=== PATIENT | female | born 1950 | race Caucasian/White ===

== ENCOUNTER → 2018-03-11 08:30 | Outpatient (CLI) | payer OTHER, SELFPAY ==
[2018-03-11 09:35] LABS: Add Manual Diff / Slide Review NO; Basophils Percent Auto 0.7 % (0-2); Eosinophils Percent Auto 3.9 % (2-4); Hematocrit 40.9 % (36-46); Hemoglobin 13.8 g/dL (12.0-16.0); Lymphocytes Percent Auto 20.2 % (25-40); Mean Corpuscular HGB Conc 33.7 % (30-36); Mean Corpuscular Hemoglobin 29.5 PG (26-34); Mean Corpuscular Volume 87.5 fL (80-100); Monocytes Percent Auto 10.2 % (3-14); Neutrophils Absolute Auto 5100 /uL (3000-5900); Platelet Count 380 X10^3/uL (150-400); Red Blood Cell Count 4.67 X10^6/uL (4.0-5.2); Red Cell Distribution Width 14.5 % (11.6-14.8); White Blood Cell Count 7.8 X10^3/uL (4.5-11.0)
[2018-03-11 09:59] LABS: Alanine Aminotransferase 37 IU/L (9-52); Albumin 4.1 g/dL (3.5-5.0); Albumin Globulin Ratio 1.1 (1.0-2.8); Alkaline Phosphatase 114 U/L (38-126); Aspartate Aminotransferase 29 IU/L (14-36); BUN Creatinine Ratio 18.8 (6-22); Bilirubin Total 0.5 mg/dL (0.2-1.3); Blood Urea Nitrogen 15 mg/dL (7-17); Calcium 10.1 mg/dL (8.4-10.2); Carbon Dioxide 25 mmol/L (22-32); Chloride 104 mmol/L (98-107); Cholesterol 185 mg/dL (140-199); Estimated Glomerular Filt Rate > 60.0 mL/min (>60); Globulin 3.8 g/dL (1.7-4.1); Glucose 111 mg/dL (80-110); HDL Cholesterol 73 mg/dL (40-60); HEMOLYSIS < 15 (0-50); LDL Cholesterol Calculated 92 mg/dL (<100); Potassium 4.4 mmol/L (3.4-5.1); Sodium 140 mmol/L (137-145); Total Protein 7.9 g/dL (6.3-8.2); Triglycerides 102 mg/dL (35-150)
== END ==
PROVIDERS: Family Provider Family Medicine; PCP Family Medicine; Visit Provider Family Medicine
DX: E78.5 Hyperlipidemia, unspecified (principal)
CPT/HCPCS: 36415; 80053; 80061; 85025

== ENCOUNTER → 2019-02-21 16:52 | Outpatient (CLI) | payer OTHER, SELFPAY ==
--- NOTE | 2019-02-21 16:54 | DI.MG.S_ITS ---
BILATERAL DIGITAL SCREENING MAMMOGRAM 3D/2D WITH CAD: 02/21/2019 CLINICAL: Routine screening. Family history of breast cancer. Comparison is made to exams dated: 12/29/2017 mammogram, 07/01/2017 mammogram, and 06/17/2017 mammogram - [facility]. The tissue of both breasts is predominantly fatty. Current study was also evaluated with a Computer Aided Detection (CAD) system. There is a 1.1 cm irregular focal asymmetry with a spiculated margin in the left breast at 3 o'clock anterior depth. This is increased in size. No other significant masses, calcifications, or other findings are seen in either breast. IMPRESSION: INCOMPLETE: NEEDS ADDITIONAL IMAGING EVALUATION The 1.1 cm irregular focal asymmetry in the left breast is indeterminate. A diagnostic mammogram and ultrasound is recommended. This exam was interpreted at Station ID: [id number]. NOTE: For mammograms, a report in lay terms will be sent to the patient. Approximately 15% of breast malignancies will not be visualized mammographically. In the management of a palpable breast mass, a negative mammogram must not discourage biopsy of a clinically suspicious lesion. Electronically Signed By: Tracee lange/:02/21/2019 18:55:23 letter sent: Additional Imaging Needed ACR BI-RADS Category 0: Incomplete 3340F
== END ==
PROVIDERS: Family Provider Student in an Organized Health Care Education/Training Program; PCP Student in an Organized Health Care Education/Training Program; Visit Provider Student in an Organized Health Care Education/Training Program
DX: Z12.31 Encounter for screening mammogram for malignant neoplasm of breast (principal); Z80.3 Family history of malignant neoplasm of breast
CPT/HCPCS: 77063; 77067

== ENCOUNTER → 2019-03-08 14:11 | Outpatient (CLI) | payer OTHER, SELFPAY ==
--- NOTE | 2019-03-08 14:13 | DI.US.S_ITS ---
LIMITED ULTRASOUND OF LEFT BREAST AND AXILLA: 03/08/2019 CLINICAL: Patient returns today to evaluate a focal asymmetry in the left breast. Comparison is made to exams dated: 03/08/2019 mammogram, 02/21/2019 mammogram, 06/17/2017 mammogram - [facility], and 02/22/2014 mammogram [facility]. Real-time and Doppler ultrasound of the left breast 3-4 o'clock, and axilla regions were performed. Staples scale images of the real-time examination were reviewed. There is a 0.9 x 0.6 x 1.4 cm oval indistinct hyperechoic mass with mixed central hypoechogenicity located in the left breast at 3:30 position 2 cm from the nipple. This mass demonstrates posterior shadowing artifact and no significant vascularity on Doppler ultrasound. This appears to correlate with the findings seen on comparison mammography. Targeted ultrasound of the left axilla demonstrates 2 axillary lymph nodes measuring 1.0 x 1.2 x 1.0 cm and 1.6 x 1.1 x 1.4 cm respectively, which both demonstrate similar morphology to the mass described above (being oval indistinct hyperechoic masses with mixed central hypoechogenicity). These lymph nodes demonstrate mild internal vascularity on Doppler ultrasound. IMPRESSION: SUSPICIOUS OF MALIGNANCY There is a 1.4 cm hyperechoic mass in the left breast at 3:30 position 2 cm from the nipple. This may represent an atypical intramammary lymph node given similar morphology to atypical lymph nodes seen within the left axilla, versus focal fat edema/injury (patient denies any recent history of trauma). An ultrasound-guided biopsy of the 1.4 cm mass in the left breast at 3:30 position 2 cm from the nipple is recommended to exclude underlying malignancy. Biopsy versus followup of the left axillary nodes is deferred at this time pending mass biopsy results. These results and recommendations were discussed with the patient at the time of the exam by Dr. Brown in person. The patient was advised to monitor her breasts and to return sooner for re-evaluation should she feel anything grow or change. This exam was interpreted at Station ID: [id number]. Electronically Signed By: Jorge Brown M.D. ecl/:03/08/2019 15:46:39 letter sent: Biopsy Required Ultrasound BI-RADS: 4a Suspicious abnormality - low suspicion for malignancy
--- NOTE | 2019-03-08 14:13 | DI.MG.S_ITS ---
UNILATERAL LEFT DIGITAL DIAGNOSTIC MAMMOGRAM 3D/2D: 03/08/2019 CLINICAL: Additional evaluation requested from prior study. Comparison is made to exams dated: 02/21/2019 mammogram, 12/29/2017 mammogram, 07/01/2017 mammogram, and 06/17/2017 mammogram - [facility]. The tissue of left breast is predominantly fatty. Previously identified approximately 1.1 cm irregular focal asymmetry with a spiculated margin in the left breast at 3 o'clock anterior depth on comparison screening mammograms of 02/21/2019 persists with additional views. IMPRESSION: INCOMPLETE: NEEDS ADDITIONAL IMAGING EVALUATION Previously identified approximately 1.1 cm irregular focal asymmetry with a spiculated margin in the left breast at 3 o'clock anterior depth on comparison screening mammograms of 02/21/2019 persists with additional views. A targeted ultrasound is recommended for further evaluation, and will be performed immediately following this exam. This exam was interpreted at Station ID: [id number]. NOTE: For mammograms, a report in lay terms will be sent to the patient. Approximately 15% of breast malignancies will not be visualized mammographically. In the management of a palpable breast mass, a negative mammogram must not discourage biopsy of a clinically suspicious lesion. Electronically Signed By: Jorge Brown M.D. ecl/:03/08/2019 15:38:03 ACR BI-RADS Category 0: Incomplete 3340F
== END ==
PROVIDERS: Family Provider Student in an Organized Health Care Education/Training Program; PCP Student in an Organized Health Care Education/Training Program; Visit Provider Student in an Organized Health Care Education/Training Program
DX: R92.8 Other abnormal and inconclusive findings on diagnostic imaging of breast (principal); N63.23 Unspecified lump in the left breast, lower outer quadrant
CPT/HCPCS: 76642; 77065; G0279

== ENCOUNTER → 2019-03-28 13:45 | Outpatient (CLI) | payer OTHER, SELFPAY ==
--- NOTE | 2019-03-28 | DI.MG.S_ITS ---
UNILATERAL LEFT DIGITAL DIAGNOSTIC MAMMOGRAM POST-NEEDLE BIOPSY: 03/28/2019 CLINICAL: Left breast mass. Comparison is made to exams dated: 03/08/2019 mammogram, 02/21/2019 mammogram, and 06/17/2017 mammogram - [facility]. Current study contains 2 films. The tissue of left breast is predominantly fatty. There is a marker clip in the appropriate position in the left breast at 4 o'clock anterior depth. IMPRESSION: POST PROCEDURE MAMMOGRAM FOR MARKER PLACEMENT There was a successful marker clip placement in the left breast anterior depth. This exam was interpreted at Station ID: [id number]. NOTE: For mammograms, a report in lay terms will be sent to the patient. Approximately 15% of breast malignancies will not be visualized mammographically. In the management of a palpable breast mass, a negative mammogram must not discourage biopsy of a clinically suspicious lesion. Electronically Signed By: Yony avila/penlona:03/29/2019 09:22:19 ACR BI-RADS Category Post-procedure mammogram for marker placement
--- NOTE | 2019-03-28 | PATH_ITS ---
[facility] Accession Number: [id number] . 01 Material submitted: . breast - LEFT BREAST 3:30 . 01 Clinical history: . LEFT BREAST 330 2CM FN . 01 Diagnosis: Left Breast, 3:30 o'clock, 2 cm from Nipple, Biopsy: Breast parenchyma with stromal fibrosis, focal usual ductal hyperplasia, columnar cell change/hyperplasia, and pseudoangiomatous hyperplasia, with associated microcalcifications. Negative for atypia, carcinoma in situ, and invasive malignancy. MRV/03/30/2019 . 01 Comment: Dr. Robin reviewed select slides on this case and agrees with the interpretation. Deeper levels are examined. . 01 Electronically signed: Marylin Castellanos MD, Pathologist NPI- [id number] . 01 Gross description: . Received one formalin-filled container labeled with the patient's name and labeled left breast 3:30 2 cm FN. Specimen received with a plastic filter in container, sample loose in container and consists of multiple yellow-stewart pieces of soft tissue which range in size from 0.1 x 0.1 x 0.1 cm to 0.8 x 0.3 x 0.3 cm. The specimen is filtered, and all fragments are entirely submitted in one cassette. Collection date: 03/28/2019. Collection time per container: 15:05. Total fixation time: 12 hours, up to 24. ([id number]) /FRR . 01 Pathologist provided ICD-10: N63.0, N60.19 . 01 CPT . 414524 Performed at: [address] [facility], [place], [place] [id number] MD Graham Wheeler MD Phone: [phone]
--- NOTE | 2019-03-28 13:47 | DI.US.S_ITS ---
ULTRASOUND GUIDED BIOPSY LEFT BREAST USING VACUUM DEVICE WITH MARKING DEVICE INSERTED AND POST DIGITAL MAMMOGRAPHIC IMAGIN03/28/2019 CLINICAL: Left breast mass. PATIENT CONSENT: Risks (minor bleeding, infection, vasovagal reaction and repeat procedure), benefits and alternatives were explained to the patient and written informed consent was obtained. Correlation is made to exams dated: 02/21/2019 mammogram, 03/08/2019 mammogram, 03/08/2019 ultrasound, 06/17/2017 mammogram - [facility], and 02/22/2014 mammogram [facility]. An ultrasound guided biopsy using real-time ultrasound was performed for the lobulated solid mass located in the left breast at 3 o'clock anterior depth. This was described on the previous ultrasound report. The skin was prepped in the usual manner. Local anesthetic was administered to the access site. A small incision was made in the breast. The abnormality was approached from the lateral aspect. A 10 gauge biopsy needle was placed adjacent to the abnormality under ultrasound guidance. Once the needle was documented to be in the correct location, four specimens were obtained using a vacuum assisted device. A clip was inserted into the biopsy cavity. A skin adhesive was applied to the access site. Post procedure digital mammographic imaging demonstrates the location device at the targeted area. The specimens were sent to the laboratory for pathological analysis. IMPRESSION: ULTRASOUND GUIDED BIOPSY BENIGN Ultrasound guided biopsy of the solid mass in the left breast at 3 o'clock anterior depth was successful with no apparent post procedure complications. 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 Pathology results are concordant with imaging findings. Return to annual mammogram screening schedule is recommended. This exam was interpreted at Station ID: [id number]. silvestre Dalal M.D./:04/04/2019 17:30:47
== END ==
PROVIDERS: Family Provider Student in an Organized Health Care Education/Training Program; PCP Student in an Organized Health Care Education/Training Program; Visit Provider Student in an Organized Health Care Education/Training Program
DX: N60.32 Fibrosclerosis of left breast (principal); N60.92 Unspecified benign mammary dysplasia of left breast; R92.0 Mammographic microcalcification found on diagnostic imaging of breast
CPT/HCPCS: 19083; 77065

== ENCOUNTER → 2019-11-10 11:35 | Outpatient (CLI) | payer MEDICARE, SELFPAY ==
[2019-11-13 14:20] LABS: Fecal Immunochemical Test NOT DETECTED (NOT DETECTED)
== END ==
PROVIDERS: Family Provider Student in an Organized Health Care Education/Training Program; PCP Student in an Organized Health Care Education/Training Program; Referring Provider Student in an Organized Health Care Education/Training Program; Visit Provider Student in an Organized Health Care Education/Training Program
DX: Z12.11 Encounter for screening for malignant neoplasm of colon (principal)
CPT/HCPCS: 82274

== ENCOUNTER → 2019-12-11 13:38 | Outpatient (CLI) | payer MEDICARE, SELFPAY | PROVIDERS: Family Provider Student in an Organized Health Care Education/Training Program; PCP Student in an Organized Health Care Education/Training Program; Referring Provider Student in an Organized Health Care Education/Training Program; Visit Provider Student in an Organized Health Care Education/Training Program | DX: M85.852 Other specified disorders of bone density and structure, left thigh (principal); Z78.0 Asymptomatic menopausal state; R29.6 Repeated falls; Z91.89 Other specified personal risk factors, not elsewhere classified; Z87.891 Personal history of nicotine dependence | CPT/HCPCS: 77080 ==

== ENCOUNTER → 2020-04-21 11:37 | Outpatient (CLI) | payer MEDICARE, SELFPAY ==
--- NOTE | 2020-04-21 11:54 | DI.MG.S_ITS ---
Patient Name: VINOD ROSE date: 1950 Sex: F Attending Physician: Malissa Indications: Date: 04/21/2020 11:46 At the request of: CARLOTA PURCELL Procedure: MM screening mammo BI BILATERAL DIGITAL SCREENING MAMMOGRAM 3D/2D WITH CAD: 04/21/2020 CLINICAL: Routine screening. Family history of breast cancer. Comparison is made to exams dated: 03/28/2019 mammogram, 03/08/2019 mammogram, and 02/21/2019 mammogram - [facility]. The tissue of both breasts is predominantly fatty. Current study was also evaluated with a Computer Aided Detection (CAD) system. No significant masses, calcifications, or other findings are seen in either breast. There has been no significant interval change. IMPRESSION: NEGATIVE There is no mammographic evidence of malignancy. A 1 year screening mammogram is recommended. This exam was interpreted at Station ID: [id number]. NOTE: For mammograms, a report in lay terms will be sent to the patient. Approximately 15% of breast malignancies will not be visualized mammographically. In the management of a palpable breast mass, a negative mammogram must not discourage biopsy of a clinically suspicious lesion. Electronically Signed By: Zay Elena M.D., jr/jeff:04/21/2020 14:15:24 letter sent: Normal Exam ACR BI-RADS Category 1: Negative 3341F
== END ==
PROVIDERS: Family Provider Student in an Organized Health Care Education/Training Program; PCP Student in an Organized Health Care Education/Training Program; Referring Provider Student in an Organized Health Care Education/Training Program; Visit Provider Student in an Organized Health Care Education/Training Program
DX: Z12.31 Encounter for screening mammogram for malignant neoplasm of breast (principal); Z80.3 Family history of malignant neoplasm of breast
CPT/HCPCS: 77063; 77067

== ENCOUNTER → 2020-12-08 13:08 | Outpatient (CLI) | payer MEDICARE, SELFPAY ==
[2020-12-09 12:39] LABS: Fecal Immunochemical Test Negative (Negative)
== END ==
PROVIDERS: Family Provider Student in an Organized Health Care Education/Training Program; PCP Student in an Organized Health Care Education/Training Program; Referring Provider Student in an Organized Health Care Education/Training Program; Visit Provider Student in an Organized Health Care Education/Training Program
DX: Z12.11 Encounter for screening for malignant neoplasm of colon (principal)
CPT/HCPCS: 82274

== ENCOUNTER → 2021-05-11 14:14 | Outpatient (CLI) | payer MEDICARE, SELFPAY ==
--- NOTE | 2021-05-11 14:15 | DI.MG.S_ITS ---
BILATERAL DIGITAL SCREENING MAMMOGRAM 3D/2D WITH CAD: 05/11/2021 CLINICAL: Routine screening. Family history of breast cancer. Comparison is made to exams dated: 04/21/2020 mammogram, 03/28/2019 mammogram, 03/08/2019 mammogram, 02/21/2019 mammogram, and 07/01/2017 [facility]. The tissue of both breasts is predominantly fatty. Current study was also evaluated with a Computer Aided Detection (CAD) system. No significant masses, calcifications, or other findings are seen in either breast. There has been no significant interval change. IMPRESSION: NEGATIVE There is no mammographic evidence of malignancy. A 1 year screening mammogram is recommended. This exam was interpreted at Station ID: [id number]. NOTE: For mammograms, a report in lay terms will be sent to the patient. Approximately 15% of breast malignancies will not be visualized mammographically. In the management of a palpable breast mass, a negative mammogram must not discourage biopsy of a clinically suspicious lesion. Electronically Signed By: Mars rios/jeff:05/11/2021 15:33:16 letter sent: Normal Exam ACR BI-RADS Category 1: Negative 3341F
== END ==
PROVIDERS: Family Provider Student in an Organized Health Care Education/Training Program; PCP Student in an Organized Health Care Education/Training Program; Referring Provider Student in an Organized Health Care Education/Training Program; Visit Provider Student in an Organized Health Care Education/Training Program
DX: Z12.31 Encounter for screening mammogram for malignant neoplasm of breast (principal); Z80.3 Family history of malignant neoplasm of breast
CPT/HCPCS: 77063; 77067

== ENCOUNTER → 2021-11-26 16:44 | Outpatient (CLI) | payer MEDICARE, SELFPAY ==
[2021-11-27 15:42] LABS: Fecal Immunochemical Test Negative (Negative)
== END ==
PROVIDERS: Family Provider Student in an Organized Health Care Education/Training Program; PCP Student in an Organized Health Care Education/Training Program; Referring Provider Student in an Organized Health Care Education/Training Program; Visit Provider Student in an Organized Health Care Education/Training Program
DX: Z12.11 Encounter for screening for malignant neoplasm of colon (principal)
CPT/HCPCS: 82274

== ENCOUNTER → 2022-01-01 12:41 | Outpatient (CLI) | payer MEDICARE, SELFPAY ==
--- NOTE | 2022-01-01 12:43 | DI.RAD.S_ITS ---
PROCEDURE: XR DEXA AXIAL SKELETON INDICATIONS: Osteoporosis screening COMPARISON: [facility], CR, XR DEXA AXIAL SKELETON, 12/11/2019, 14:01. FINDINGS: This blank DEXA report has been sent in error by the PACS system. The correct and complete report will be forthcoming in 1-2 days. Thank you for your patience and understanding. Dictated by: Mars Danielle M.D. on 01/01/2022 at 14:10 Approved by: Mars Danielle M.D. on 01/01/2022 at 14:10
== END ==
PROVIDERS: Family Provider Student in an Organized Health Care Education/Training Program; PCP Student in an Organized Health Care Education/Training Program; Referring Provider Student in an Organized Health Care Education/Training Program; Visit Provider Student in an Organized Health Care Education/Training Program
DX: Z78.0 Asymptomatic menopausal state (principal); Z13.820 Encounter for screening for osteoporosis; M85.89 Other specified disorders of bone density and structure, multiple sites
CPT/HCPCS: 77080

== ENCOUNTER → 2022-05-12 13:54 | Outpatient (CLI) | payer MEDICARE, SELFPAY ==
--- NOTE | 2022-05-12 13:55 | DI.MG.S_ITS ---
BILATERAL DIGITAL SCREENING MAMMOGRAM 3D/2D WITH CAD: 05/12/2022 CLINICAL: Routine screening. Family history of breast cancer. Comparison is made to exams dated: 05/11/2021 mammogram, 04/21/2020 mammogram, and 03/28/2019 mammogram - [facility]. The tissue of both breasts is predominantly fatty. Current study was also evaluated with a Computer Aided Detection (CAD) system. No significant masses, calcifications, or other findings are seen in either breast. There has been no significant interval change. IMPRESSION: NEGATIVE There is no mammographic evidence of malignancy. A 1 year screening mammogram is recommended. Based on the Tyrer Cuzick model (a risk assessment model) the patient's lifetime risk is 9.2% and her 10 year risk is 7.6%. According to the ACR, ACS, and NCCN guidelines, an annual breast MRI exam along with mammogram is recommended if the patient's lifetime risk is 20% or greater. This exam was interpreted at Station ID: [id number]. NOTE: For mammograms, a report in lay terms will be sent to the patient. Approximately 15% of breast malignancies will not be visualized mammographically. In the management of a palpable breast mass, a negative mammogram must not discourage biopsy of a clinically suspicious lesion. Electronically Signed By: Grey quinones/jeff:05/12/2022 15:09:17 letter sent: Normal Exam ACR BI-RADS Category 1: Negative 3341F
== END ==
PROVIDERS: Family Provider Student in an Organized Health Care Education/Training Program; PCP Student in an Organized Health Care Education/Training Program; Referring Provider Student in an Organized Health Care Education/Training Program; Visit Provider Student in an Organized Health Care Education/Training Program
DX: Z12.31 Encounter for screening mammogram for malignant neoplasm of breast (principal); Z80.3 Family history of malignant neoplasm of breast
CPT/HCPCS: 77063; 77067

== ENCOUNTER → 2022-11-09 13:56 | Outpatient (CLI) | payer MEDICARE, SELFPAY ==
[2022-11-09 14:35] LABS: BUN Creatinine Ratio 17.3 (6-22); Blood Urea Nitrogen 14 mg/dL (7-17); Calcium 9.1 mg/dL (8.4-10.2); Carbon Dioxide 23 mmol/L (22-32); Chloride 101 mmol/L (98-107); Cholesterol 170 mg/dL (140-199); Estimated Glomerular Filt Rate > 60 mL/min (>60); Glucose 125 mg/dL (80-110); HDL Cholesterol 71 mg/dL (40-60); HEMOLYSIS < 15 (0-50); LDL Cholesterol Calculated 76 mg/dL (<100); Potassium 4.4 mmol/L (3.4-5.1); Sodium 136 mmol/L (137-145); Triglycerides 114 mg/dL (35-150)
[2022-11-11 16:29] LABS: Hep C Virus Ab w/Reflex Quant NEGATIVE s/c (NEGATIVE)
== END ==
PROVIDERS: Family Provider Student in an Organized Health Care Education/Training Program; PCP Student in an Organized Health Care Education/Training Program; Referring Provider Student in an Organized Health Care Education/Training Program; Visit Provider Student in an Organized Health Care Education/Training Program
DX: E78.00 Pure hypercholesterolemia, unspecified (principal); Z11.59 Encounter for screening for other viral diseases; N39.46 Mixed incontinence; Z79.899 Other long term (current) drug therapy
CPT/HCPCS: 36415; 80048; 80061; 86803

== ENCOUNTER → 2022-12-14 16:18 | Outpatient (CLI) | payer MEDICARE, SELFPAY ==
--- NOTE | 2022-12-14 16:19 | DI.US.S_ITS ---
PROCEDURE: US PERIPH VENOUS LOW EXTREM RT INDICATIONS: RIGHT CALF PAIN TECHNIQUE: Real-time imaging, as well as color and pulse Doppler interrogation, were performed of the lower extremity deep veins from the inguinal ligament to the popliteal fossa. COMPARISON: None. FINDINGS: The common femoral, femoral and popliteal veins are normally compressible, and free of intraluminal thrombus. Color and pulse Doppler demonstrate normal phasic intraluminal flow. There is normal augmentation response to distal compression maneuver. IMPRESSION: No DVT in the right lower extremity Dictated by: Kaushik Benson M.D. on 12/14/2022 at 17:52 Approved by: Kaushik Benson M.D. on 12/14/2022 at 17:53
== END ==
PROVIDERS: Family Provider Student in an Organized Health Care Education/Training Program; PCP Student in an Organized Health Care Education/Training Program; Referring Provider Student in an Organized Health Care Education/Training Program; Visit Provider Student in an Organized Health Care Education/Training Program
DX: M79.661 Pain in right lower leg (principal)
CPT/HCPCS: 93971

== ENCOUNTER 2023-01-13 10:28 | Day surgery (SDC) | payer MEDICARE, SELFPAY ==
[2023-01-13 10:38] VITALS: BP 138/76; PULSE 82; RESP 18; TEMP 37; O2SAT 97; BMI 31.9
[2023-01-13] MEDS: LACTATED RINGERS 1,000 ML 42 ML IV (10:50)
--- NOTE | 2023-01-13 11:34 | P.HP_ITS ---
History of Present Illness History of Present Illness Date Patient Seen: 01/13/23 Time Patient Seen: 11:40 Chief complaint: Colonoscopy Narrative: colon cancer screening, last scope over 8 years ago and had benign polyps. [facility] Medical History (Updated 11/11/22 @ 08:31 by Dionisio Leonardo MD) Balance problem Chickenpox (1951) Colon polyps (2002) Depression (1969) Measles (1952) Migraines (1968) Mixed stress and urge urinary incontinence (09/14/17) Mumps (1953) Osteopenia after menopause Pure hypercholesterolemia (07/16/16) Seizures (1968) Skull fracture with concussion (1968) Tinnitus of both ears (~1994) Surgical History (Updated 10/14/20 @ 19:58 by Dionisio Leonardo MD) History of tonsillectomy and adenoidectomy (1951) Hx of section (1983) Hx of total knee arthroplasty (03/2015) Hx of total knee arthroplasty (09/2016) Hx of tubal ligation (1983) Family History Father No problems noted. Mother Cancer Brother Cancer Sister Cancer Sister No problems noted. Social History household members: family and children Smoking Status: Former smoker alcohol intake: former Meds Home Medications and Allergies Home Medications Medication Instructions Recorded Confirmed Type ibuprofen 100 mg tablet (Advil) 600 mg PO QDAYP PRN ##0 07/16/16 12/14/22 History atorvastatin 20 mg tablet (Lipitor) 20 mg PO HS #90 tabs 10/27/22 12/14/22 Rx ondansetron 4 mg disintegrating 4 mg PO Q8H PRN nausea and 11/09/22 12/14/22 Rx tablet vomiting #30 tabs oxybutynin chloride 10 mg 10 mg PO QDAY #90 tabs 12/21/22 Rx tablet,extended release 24 hr Allergies Allergy/AdvReac Type Severity Reaction Status Date / Time sertraline AdvReac diarrhea Verified 12/14/22 15:43 and abdominal cramping Review of Systems Review of Systems ROS: Yes All systems reviewed with the patient and are negative except as otherwise documented Exam Vital Signs (past 8 hours): - 01/13/23 10:38 Temperature 98.6 F Pulse Rate 82 Respiratory Rate 18 Blood Pressure 138/76 Pulse Oximetry 97 Oxygen Delivery Method Room Air Oxygen Delivery Method Room Air Const General: cooperative and healthy appearing Nutritional Appearance: average body habitus HENMT Head: normocephalic and atraumatic Eyes Sclera: sclerae normal Neck Neck: trachea midline Resp Effort & Inspection: normal respiratory effort and able to speak in complete sentences Cardio Rate: regular rate Rhythm: regular rhythm GI Palpation: soft Skin General: turgor normal and atrophy Neuro General: patient alert, patient awake and patient oriented x3 Cognition: normal cognition Psych Mental Status: mental status grossly normal Affect: normal affect Judgment: judgment good Assessment & Plan Assessment & Plan narrative: colon cancer screening using colonoscopy under MAC Time Spent With Patient Time with patient: less than 30 minutes
--- NOTE | 2023-01-13 11:50 | PM.OP.COLON ---
Operative Date/Time/Diagnoses Date of procedure: 01/13/23 Time of procedure: 11:51 Pre-op diagnosis: colon cancer screening Post-op diagnosis: same Procedure & Clinicians Study performed: colonoscopy under MAC Same procedure as scheduled: Yes Indications: Colon cancer screening Surgeon: Jing Mejia Procedure Notes Procedure in detail: Preop diagnosis: Colon cancer screening Postop diagnosis: Same Operative procedure: Colonoscopy under MAC Surgeon: Tayla Mejia MD Findings: Normal colonoscopy. No significant diverticulosis, no polyps. Procedure: Patient placed in a lateral position. Rectal exam performed showing normal tone no masses. Colonoscope inserted into the rectum and advanced to ileocecal valve with minimal difficulty. Insufflation and extraction of the scope as the above findings. Retroflex was included in the rectum Impression: Normal colonoscopy, no polyps Plan: Repeat colonoscopy in 10 years unless otherwise indicated by change in clinical condition Specimen(s): none sent Complications: other Impression: no polyps, normal colon Post-procedure Recommendations: Colonoscopy in 10 years Follow up: as needed Disposition: PACU
[2023-01-13 12:09] VITALS: BP 110/67; PULSE 78; RESP 20; TEMP 36.4; O2SAT 91
[2023-01-13 12:14] VITALS: BP 122/75; PULSE 76; RESP 19; O2SAT 96
[2023-01-13 12:18] VITALS: BP 125/80; PULSE 74; RESP 16; O2SAT 99
== END 2023-01-13 12:27 | disposition home or self-care (01) ==
PROVIDERS: Family Provider Student in an Organized Health Care Education/Training Program; PCP Student in an Organized Health Care Education/Training Program; Referring Provider Surgery; Visit Provider Surgery
PROC: 0DJD8ZZ Inspection of Lower Intestinal Tract, Via Natural or Artificial Opening Endoscopic (ICD-10-PCS; CPT 45378; principal; 2023-01-13 11:30)
DX: Z12.11 Encounter for screening for malignant neoplasm of colon (principal)
CPT/HCPCS: G0121; J2704

== ENCOUNTER → 2023-05-13 11:01 | Outpatient (CLI) | payer MEDICARE, SELFPAY ==
--- NOTE | 2023-05-13 | DI.MG.S_ITS ---
BILATERAL DIGITAL SCREENING MAMMOGRAM 3D/2D WITH CAD: 05/13/2023 CLINICAL: Routine screening. Family history of breast cancer. Comparison is made to exams dated: 05/12/2022 mammogram, 05/11/2021 mammogram, and 04/21/2020 mammogram - [facility]. Both breasts are almost entirely fatty (category a/<25% glandular tissue). Current study was also evaluated with a Computer Aided Detection (CAD) system. There are benign calcifications in both breasts. No significant masses, calcifications, or other findings are seen in either breast. There has been no significant interval change. IMPRESSION: BENIGN There is no mammographic evidence of malignancy. A 1 year screening mammogram is recommended. Based on the Tyrer Cuzick model (a risk assessment model) the patient's lifetime risk is 8.6% and her 10 year risk is 7.8%. According to the ACR, ACS, and NCCN guidelines, an annual breast MRI exam along with mammogram is recommended if the patient's lifetime risk is 20% or greater. This exam was interpreted at Station ID: [id number]. NOTE: For mammograms, a report in lay terms will be sent to the patient. Approximately 15% of breast malignancies will not be visualized mammographically. In the management of a palpable breast mass, a negative mammogram must not discourage biopsy of a clinically suspicious lesion. Electronically Signed By: Kecia rivers/jeff:05/13/2023 14:12:10 letter sent: Normal Exam ACR BI-RADS Category 2: Benign Finding(s) 3342F
== END ==
PROVIDERS: Family Provider Student in an Organized Health Care Education/Training Program; PCP Pediatrics; Referring Provider Pediatrics; Visit Provider Pediatrics
DX: Z12.31 Encounter for screening mammogram for malignant neoplasm of breast (principal); Z80.3 Family history of malignant neoplasm of breast
CPT/HCPCS: 77063; 77067

== ENCOUNTER → 2023-05-17 14:00 | Outpatient (CLI) | payer MEDICARE, SELFPAY | LOC: PHYS 08-25 12:29 | PROVIDERS: Family Provider Pediatrics; PCP Pediatrics; Referring Provider Pediatrics; Visit Provider Pediatrics | DX: R29.898 Other symptoms and signs involving the musculoskeletal system (principal); R20.0 Anesthesia of skin; R20.2 Paresthesia of skin ==

== ENCOUNTER → 2024-01-09 14:43 | Outpatient (CLI) | payer MEDICARE, SELFPAY ==
[2024-01-09 15:26] LABS: Influenza A - CEPHEID Flu A NEGATIVE (NEGATIVE); Influenza B - CEPHEID Flu B NEGATIVE (NEGATIVE); Respiratory Syncytial Virus Negative (Negative)
[2024-01-09 15:35] LABS: COVID-19 CEPHEID 4-PLEX PCR Negative (Negative)
== END ==
PROVIDERS: Family Provider Pediatrics; PCP Family Medicine; Visit Provider Physician Assistant
DX: R05.9 Cough, unspecified (principal)
CPT/HCPCS: 0241U

== ENCOUNTER → 2024-01-09 15:34 | Outpatient (CLI) | payer MEDICARE, SELFPAY ==
--- NOTE | 2024-01-09 15:36 | DI.RAD.S_ITS ---
PROCEDURE: XR CHEST 2V INDICATIONS: Cough and fatigue x8 days TECHNIQUE: 2 views of the chest were acquired. COMPARISON: None. FINDINGS: Surgical changes and devices: None. Lungs and pleura: Lungs are clear. No pneumothorax. Minimal scarring of the right costophrenic recess versus tiny right pleural effusion Mediastinum: Mediastinal contours are normal. Heart size is normal. Bones and chest wall: No suspicious bony abnormalities. Soft tissues appear unremarkable. IMPRESSION: Minimal scarring of the right costophrenic recess versus tiny right pleural effusion Otherwise no acute findings Dictated by: on 01/09/2024 at 16:04 Transcribed by: on 01/09/2024 at 16:04 Approved by: Tom López M.D. on 01/09/2024 at 16:25
== END ==
PROVIDERS: Family Provider Pediatrics; PCP Family Medicine; Referring Provider Physician Assistant; Visit Provider Physician Assistant
DX: R05.9 Cough, unspecified (principal)
CPT/HCPCS: 0241U; 71046

== ENCOUNTER → 2024-02-01 08:56 | Outpatient (CLI) | payer MEDICARE, SELFPAY ==
[2024-02-01 10:44] LABS: Blood Urea Nitrogen 21 mg/dL (7-17); Calcium 9.3 mg/dL (8.4-10.2); Carbon Dioxide 25 mmol/L (22-32); Chloride 112 mmol/L (98-107); Cholesterol 269 mg/dL (140-199); Estimated Glomerular Filt Rate > 60 mL/min (>60); Glucose 89 mg/dL (80-110); HDL Cholesterol 91 mg/dL (40-60); HEMOLYSIS < 15 (0-50); LDL Cholesterol Calculated 161 mg/dL (<100); Potassium 4.2 mmol/L (3.4-5.1); Sodium 139 mmol/L (137-145); Triglycerides 85 mg/dL (35-150)
== END ==
LOC: LAB 08:56
PROVIDERS: Family Provider Pediatrics; PCP Family Medicine; Referring Provider Family Medicine; Visit Provider Family Medicine
DX: E78.00 Pure hypercholesterolemia, unspecified (principal); E66.9 Obesity, unspecified
CPT/HCPCS: 36415; 80048; 80061

== ENCOUNTER → 2024-06-14 10:44 | Outpatient (CLI) | payer MEDICARE, SELFPAY ==
--- NOTE | 2024-06-14 10:45 | DI.MG.S_ITS ---
BILATERAL DIGITAL SCREENING MAMMOGRAM 3D/2D WITH CAD: 06/14/2024 CLINICAL: Routine screening. Family history of breast cancer. Comparison is made to exams dated: 05/13/2023 mammogram, 05/12/2022 mammogram, and 05/11/2021 mammogram - [facility]. Both breasts are almost entirely fatty (category a/<25% glandular tissue). Current study was also evaluated with a Computer Aided Detection (CAD) system. There are benign calcifications in both breasts. No significant masses, calcifications, or other findings are seen in either breast. There has been no significant interval change. IMPRESSION: BENIGN There is no mammographic evidence of malignancy. A 1 year screening mammogram is recommended. Based on the Tyrer Cuzick model (a risk assessment model) the patient's lifetime risk is 8.0% and her 10 year risk is 8.0%. According to the ACR, ACS, and NCCN guidelines, an annual breast MRI exam along with mammogram is recommended if the patient's lifetime risk is 20% or greater. This exam was interpreted at Station ID: [id number]. NOTE: For mammograms, a report in lay terms will be sent to the patient. Approximately 15% of breast malignancies will not be visualized mammographically. In the management of a palpable breast mass, a negative mammogram must not discourage biopsy of a clinically suspicious lesion. Electronically Signed By: Abhishek white/jeff:06/14/2024 16:40:51 letter sent: Normal Exam ACR BI-RADS Category 2: Benign Finding(s) 3342F
== END ==
PROVIDERS: Family Provider Pediatrics; PCP Family Medicine; Referring Provider Family Medicine; Visit Provider Family Medicine
DX: Z12.31 Encounter for screening mammogram for malignant neoplasm of breast (principal); R92.1 Mammographic calcification found on diagnostic imaging of breast; R92.313 Mammographic fatty tissue density, bilateral breasts; Z80.3 Family history of malignant neoplasm of breast
CPT/HCPCS: 77063; 77067

== ENCOUNTER → 2025-01-25 09:43 | Outpatient (CLI) | payer MEDICARE, SELFPAY ==
--- NOTE | 2025-01-25 09:44 | DI.RAD.S_ITS ---
PROCEDURE: XR DEXA AXIAL SKELETON INDICATIONS: Osteoporosis screening. COMPARISON: [facility], , XR DEXA AXIAL SKELETON, 01/01/2022, 13:20. [facility], CR, XR DEXA AXIAL SKELETON, 12/11/2019, 14:01. FINDINGS: Lumbar Spine: Bone mineral density 1.011 g/cm2, T score -0.3, previously -0.4. Left Femoral Neck: Bone mineral density 0.719 g/cm2, T score -1.2. Left Hip: Bone mineral density 0.856 g/cm2, T score -0.7, previously -1.2. Fracture Risk Calculation (when applicable): 10-year fracture risk of a major osteoporotic fracture 10 percent and of a hip fracture 1.8 percent. (T score greater or equal to -1.0 to: NORMAL) (T score from -1.1 to -2.4: OSTEOPENIA) (T score less than or equal to -2.5: OSTEOPOROSIS) IMPRESSION: 1. Normal bone density of the lumbar spine. 2. Osteopenia of the left femoral neck. 3. Normal bone density of the left hip. Follow-up guidelines as follows: Osteoporosis: Consider a repeat DEXA and Vertebral Fracture Assessment (VFA) exam in 2 years or sooner if medically necessary, to reassess this patient's status. Osteopenia: Consider a repeat DEXA in 2-3 years to reassess this patient's status, or if there is a new clinical indication. Normal: Consider a repeat DEXA in 5 years or sooner, or if there is a new clinical indication. All treatment decisions require clinical judgment and consideration of individual patient factors, including patient preferences, comorbidities, previous drug use, risk factors not captured in the FRAX model (e.g., frailty, falls, vitamin D deficiency, increased bone turnover, interval significant decline in bone density ) and possible under- or over-estimation of fracture risk by FRAX. In addition, the NOF Guide recommends that FDA-approved medical therapies be considered in postmenopausal women and men age >= 50 years with a: * Hip or vertebral (clinical or morphometric) fracture * T-score of <=-2.5 at the spine or hip * Ten-year fracture probability by FRAX of >= 3% for hip fracture or >=20% for major osteoporotic fracture. Dictated by: Odilon Del Rosario M.D. on 01/25/2025 at 14:12 Approved by: Odilon Del Rosario M.D. on 01/25/2025 at 14:18
== END ==
PROVIDERS: Family Provider Pediatrics; PCP Family Medicine; Referring Provider Family Medicine; Visit Provider Family Medicine
DX: Z78.0 Asymptomatic menopausal state (principal); M85.89 Other specified disorders of bone density and structure, multiple sites
CPT/HCPCS: 77080

== ENCOUNTER → 2025-02-25 09:22 | Outpatient (CLI) | payer MEDICARE, SELFPAY ==
[2025-02-25 10:03] LABS: Add Manual Diff / Slide Review NO; Basophils Absolute Auto 0 /uL (0-100); Basophils Percent Auto 0.9 % (0-2); Eosinophils Absolute Auto 200 /uL (0-450); Eosinophils Percent Auto 2.9 % (2-4); Hematocrit 39.7 % (36-46); Hemoglobin 13.4 g/dL (12.0-16.0); Lymphocytes Absolute Auto 1100 /uL (1100-4500); Lymphocytes Percent Auto 20.5 % (25-40); Mean Corpuscular HGB Conc 33.7 % (30-36); Mean Corpuscular Hemoglobin 31.6 PG (26-34); Mean Corpuscular Volume 93.5 fL (80-100); Monocytes Absolute Auto 600 /uL (0-900); Monocytes Percent Auto 11.2 % (3-14); Neutrophils Absolute Auto 3500 /uL (1500-7000); Neutrophils Percent Auto 64.5 % (50-75); Platelet Count 264 X10^3/uL (150-400); Red Blood Cell Count 4.25 X10^6/uL (4.0-5.2); Red Cell Distribution Width 13.6 % (11.6-14.8); White Blood Cell Count 5.4 X10^3/uL (4.5-11.0)
[2025-02-25 10:24] LABS: Alanine Aminotransferase 19 IU/L (<35); Albumin 3.7 g/dL (3.5-5.0); Albumin Globulin Ratio 1.5 (1.0-2.8); Alkaline Phosphatase 82 U/L (38-126); Aspartate Aminotransferase 24 IU/L (14-36); BUN Creatinine Ratio 13.7 (6-22); Bilirubin Total 0.6 mg/dL (0.2-1.3); Blood Urea Nitrogen 13 mg/dL (7-17); Calcium 9.7 mg/dL (8.4-10.2); Carbon Dioxide 24 mmol/L (22-32); Chloride 110 mmol/L (98-107); Cholesterol 211 mg/dL (140-199); Estimated Glomerular Filt Rate > 60 mL/min (>60); Globulin 2.4 g/dL (1.7-4.1); Glucose 85 mg/dL (70-99); HDL Cholesterol 105 mg/dL (40-60); HEMOLYSIS < 15 (0-50); LDL Cholesterol Calculated 86 mg/dL (<100); Sodium 139 mmol/L (137-145); Total Protein 6.1 g/dL (6.3-8.2); Triglycerides 99 mg/dL (35-150)
== END ==
PROVIDERS: Family Provider Pediatrics; PCP Family Medicine; Referring Provider Family Medicine; Visit Provider Family Medicine
DX: Z00.00 Encounter for general adult medical examination without abnormal findings (principal); E78.00 Pure hypercholesterolemia, unspecified; F32.9 Major depressive disorder, single episode, unspecified
CPT/HCPCS: 36415; 80053; 80061; 85025

== ENCOUNTER → 2025-06-17 12:54 | Outpatient (CLI) | payer MEDICARE, SELFPAY ==
--- NOTE | 2025-06-17 12:54 | DI.MG.S_ITS ---
MM screening mammo BI: 06/17/2025. BI-RADS: 2 CLINICAL: 74-year old female for bilateral screening mammogram. Tyrer-Cuzick lifetime risk of 6.5%. Current reported family history of breast cancer: sister. PRIOR EXAMS 06/14/2024, 05/13/2023, 05/12/2022, 05/11/2021. MAMMOGRAPHY TECHNIQUE: 2D and 3D (tomosynthesis) digital mammographic views obtained, with additional images as needed for full coverage. Current study was also evaluated with a Computer Aided Detection (CAD) system. DENSITY B. There are scattered areas of fibroglandular density. MAMMOGRAPHY FINDINGS Right: No suspicious mass, asymmetry, microcalcification, or other abnormality seen. Left: Biopsy marker present on the left. There are no suspicious masses, calcifications, or other findings in the breast. IMPRESSION: Right * No evidence of malignancy. Left * No evidence of malignancy with benign findings. RECOMMENDATIONS Bilateral * Annual screening mammography. OVERALL ASSESSMENT CATEGORY BI-RADS-2: Benign. The [employer] recommends annual screening mammography beginning at age 40 for women with average risk of breast cancer. ELECTRONICALLY SIGNED: Gissell Martel M.D. on 06/17/2025 at 03:29:32 PM PT Interpreting Station ID: [id number]
== END ==
PROVIDERS: Family Provider Pediatrics; PCP Family Medicine; Referring Provider Family Medicine; Visit Provider Family Medicine
DX: Z12.31 Encounter for screening mammogram for malignant neoplasm of breast (principal); Z80.3 Family history of malignant neoplasm of breast
CPT/HCPCS: 77063; 77067